=== PATIENT | female | born 1980 | race Caucasian/White ===

== ENCOUNTER 2017-04-20 09:27 | Day surgery (SDC) | payer BC ==
[~2017-04-20] VITALS: Ht 177.8 cm; Wt 72.3 kg
[~2017-04-20 09:27] MED LIST: FOLGARD RX1 TABLET PO; HEPARIN SO5000 UNITS SC; IBUPROFEN800 MG PO; LABETALOL HCL100 MG PO; LABETALOL HCL300 MG PO; LOVENOX40 MG/0.4 SC; NIFEDIPINE ER30 MG PO; PERCOCET 5/31 TABLET PO; PRENATAL TABLE1 EACH PO; VITAMIN D32000 UNI1 PO
[2017-04-20 10:09] VITALS: BP 122/73
[2017-04-20 10:27] LABS: BASOPHIL (%) 0.3 % (0-1); EOSINOPHIL (%) 1.4 % (0-5); EOSINOPHIL COUNT 0.1 K/uL (0-0.3); HEMATOCRIT 32.4 % (36.0-46.0); HEMOGLOBIN 11.2 G/DL (11.9-15.5); LYMPHOCYTE (%) 36.5 % (15-42); LYMPHOCYTE COUNT 1.3 K/uL (1.0-2.8); MCH 28.9 PG (29.0-34.0); MCHC 34.6 G/DL (30.0-36.0); MCV 83.5 FL (83-99); MONOCYTE (%) 4.2 % (3-12); MONOCYTE COUNT 0.2 K/uL (0-0.8); NEUTROPHIL (%) 57.6 % (45-76); NEUTROPHIL COUNT 2.1 K/uL (1.8-6.4); PLATELET COUNT 172 K/uL (156-360); RBC DIS.WIDTH-CV 12.7 % (11.8-14.6); RBC DIS.WIDTH-SD 38.6 % (39-53); RED BLOOD COUNT 3.88 M/uL (3.80-5.20); WHITE BLOOD COUNT 3.6 K/uL (4.1-10.2)
[2017-04-20] MEDS ORDERED: IBUPROFEN800 MG PO (12:28)
[2017-04-20] MEDS ORDERED: ENDOCET 5-3251 EACH PO (12:28)
[2017-04-20 13:15] VITALS: BP 136/66
[2017-04-20 14:20] VITALS: BP 115/56
== END 2017-04-20 14:20 | disposition home or self-care (01) ==
LOC: SDC 09:27
PROVIDERS: Obstetrics & Gynecology Obstetrics
PROC: 10D17ZZ Extraction of Products of Conception, Retained, Via Natural or Artificial Opening (ICD-10-PCS; principal; 2017-04-20)
DX: O02.1 Missed abortion (principal); O26.21 Pregnancy care for patient with recurrent pregnancy loss, first trimester
CPT/HCPCS: 85025; 86850; 86900; 86901; 88305; J0131; J0330; J1100; J1885; J2210; J2250; J2405; J3010